=== PATIENT | male | born 1990 | race Caucasian/White ===

== ENCOUNTER 2018-07-12 13:43 | Emergency (ER) | payer BC, OTHER ==
--- NOTE | 2018-07-12 15:34 | UC ---
Skin Complaint HPI - HPI Summary HPI Summary: The patient is a 28-year-old male that noticed a tender area in his right posterior thigh 2 days ago. Initially it was firm and tender cord. Now it is surrounded by redness and feels warm. He has had no recent trauma. 3 weeks ago he traveled to [place]. His mother and sister have Leiden factor V def. He has no calf pain. He has no CP or SOB - History of Current Complaint Chief Complaint: UCSkin Time Seen by Provider: 07/12/18 15:18 Stated Complaint: LUMP ON LEG Hx Obtained From: Patient Onset/Duration: Gradual Onset, Lasting Days Timing: Constant Onset Severity: Mild Current Severity: Mild Pain Intensity: 5 Pain Scale Used: 0-10 Numeric Location: Discrete Character: Pain, Redness, Raised Aggravating Factor(s): Nothing Alleviating Factor(s): Nothing Associated Signs & Symptoms: Positive: Tenderness - Allergy/Home Medications Allergies/Adverse Reactions: Allergies Allergy/AdvReac Type Severity Reaction Status Date / Time sulfamethoxazole Allergy Intermediate Hives Verified 07/12/18 14:24 [From Bactrim] trimethoprim [From Bactrim] Allergy Intermediate Hives Verified 07/12/18 14:24 Home Medications: Home Medications Albuterol inh POWDER (NF) [Proair Respiclick] 1 puff INH Q4H PRN 07/12/18 [ History Confirmed 07/12/18] Bisoprolol TAB* [Zebeta TAB*] 5 mg PO DAILY 07/12/18 [History Confirmed 07/12/18 ] Budesonide/Formote 160/4.5(NF) [Symbicort 160/4.5 (NF)] 2 puff INH BID 07/12/18 [History Confirmed 07/12/18] Levocetirizine Dihydrochloride [24Hr Allergy Relief] 5 mg PO DAILY 07/12/18 [ History Confirmed 07/12/18] amLODIPine/Benazepril 07/24(NF [Lotrel 07/24(NF)] 1 cap PO DAILY 07/12/18 [ History Confirmed 07/12/18] Review of Systems Constitutional: Negative Skin: Negative Eyes: Negative ENT: Negative Respiratory: Negative Cardiovascular: Negative Gastrointestinal: Negative Genitourinary: Negative Motor: Negative Neurovascular: Negative Musculoskeletal: Negative Neurological: Negative Psychological: Negative Is Patient Immunocompromised?: No All Other Systems Reviewed And Are Negative: Yes PMH/Surg Hx/FS Hx/Imm Hx Previously Healthy: Yes Cardiovascular History: Hypertension - Surgical History Surgical History: Yes Surgery Procedure, Year, and Place: adenoids, tubes in ears - Family History Known Family History: Positive: Hypertension - Social History Alcohol Use: Daily Alcohol Amount: 1 Substance Use Type: None Smoking Status (MU): Former Smoker Physical Exam Triage Information Reviewed: Yes Appearance: Well-Appearing, No Pain Distress, Well-Nourished Vital Signs: Initial Vital Signs Temp 99.0 F 07/12/18 14:27 Pulse 83 07/12/18 14:27 Resp 16 07/12/18 14:27 BP 139/84 07/12/18 14:27 Pulse Ox 99 07/12/18 14:27 Vital Signs Reviewed: Yes Eyes: Positive: Conjunctiva Clear ENT: Positive: Hearing grossly normal, Hoarse voice. Negative: Pharyngeal erythema, Nasal congestion, Nasal drainage Neck: Positive: Supple, Nontender, No Lymphadenopathy Respiratory: Positive: Lungs clear, Normal breath sounds, No respiratory distress Cardiovascular: Positive: RRR Abdomen Description: Positive: Nontender, No Organomegaly Musculoskeletal: Positive: ROM Intact, No Edema Neurological Exam: Normal Skin Exam: Normal Skin: Positive: Other - see image Course/Dx - Diagnoses Provider Diagnoses: right post thigh superficial thrombophelitis Discharge - Sign-Out/Discharge Documenting (check all that apply): Patient Departure All imaging exams completed and their final reports reviewed: No Studies - Discharge Plan Condition: Stable Disposition: HOME Prescriptions: Ibuprofen TAB* [Motrin TAB*] 600 mg PO QID #40 tab Patient Education Materials: Superficial Thrombophlebitis (ED) Referrals: Erick Kelley MD [Primary Care Provider] - If Needed Additional Instructions: RECHECK IF YOU DEVELOP CALF PAIN/REDNESS/SWELLING RECHECK IN 3 DAYS IF NOT IMPROVED ELEVATE HEAT - Billing Disposition and Condition Condition: STABLE Disposition: Home Images Front/Back of Body, Lg ([place]): 1 - 8 x 10 cm area of redness and erthyema. palpable 3cm long superficial cord
== END 2018-07-12 15:43 | disposition home or self-care (01) ==
LOC: UCEAST 13:43
DX: I80.01 Phlebitis and thrombophlebitis of superficial vessels of right lower extremity (principal); Z88.1 Allergy status to other antibiotic agents; Z87.891 Personal history of nicotine dependence
CPT/HCPCS: 99202; G0463